=== PATIENT | male | born 1965 | race Caucasian/White ===

== ENCOUNTER 2023-07-18 11:06 | Inpatient (IN) | payer OTHER ==
[2023-07-18 12:46] LABS: BASO % 1.3 % (0-2.0); EOS % 2.2 % (0-4.5); HEMATOCRIT 17.6 % (35.4-49); LYMPH % 40.6 % (8-40); MCHC 28.3 g/dl (32.0-35.9); MEAN CELL VOLUME 56.1 fl (80-96); MEAN PLT VOLUME 10.3 fl (7.5-11.1); MONO % 12.5 % (3.8-10.2); NEUT % 43.4 % (42.8-82.8); PLATELET COUNT 183 10^3/uL (134-434); RBC 3.14 M/mm3 (4.00-5.60); WHITE BLOOD COUNT 5.2 K/mm3 (4.0-10.0)
[2023-07-18 12:49] LABS: MCH 15.9 pg (25.7-33.7)
[2023-07-18 13:01] LABS: POTASSIUM 4.3 mmol/L (3.5-5.1)
[2023-07-18 13:02] LABS: ALBUMIN 3.9 g/dl (3.4-5.0); BLOOD UREA NITROGEN 15.2 mg/dL (7-18); CALCIUM 8.2 mg/dL (8.5-10.1)
[2023-07-18 13:06] LABS: CREATININE 0.8 mg/dL (0.55-1.3)
[2023-07-18 13:07] LABS: BILIRUBIN,TOTAL 0.4 mg/dL (0.2-1); TOT PROT 6.9 g/dl (6.4-8.2)
[2023-07-18 13:24] LABS: ANISOCYTOSIS 3+; MACROCYTOSIS 0
[2023-07-18] MEDS ORDERED: ALBUTEROL SO4 HFA INHALER IH PRN (14:10)
[2023-07-18 14:59] LABS: RETICULOCYTES 2.09 % (0.5-1.5)
[2023-07-18] MEDS: BUDESONIDE/FORMETEROL FUMARATE 80/4.5 mcg INHALER IH SCH (22:13)
[2023-07-18 22:23] LABS: BASO % 1.4 % (0-2.0); EOS % 3.4 % (0-4.5); HEMOGLOBIN 7.4 GM/dL (11.7-16.9); MCHC 29.4 g/dl (32.0-35.9); MEAN CELL VOLUME 66.8 fl (80-96); MEAN PLT VOLUME 9.1 fl (7.5-11.1); MONO % 15.1 % (3.8-10.2); NEUT % 41.1 % (42.8-82.8); PLATELET COUNT 166 10^3/uL (134-434); RBC 3.74 M/mm3 (4.00-5.60); WHITE BLOOD COUNT 6.7 K/mm3 (4.0-10.0)
[2023-07-18 22:24] LABS: MCH 19.7 pg (25.7-33.7)
[2023-07-19 00:02] VITALS: BMI 32.0
[2023-07-19] MEDS ORDERED: LEVOTHYROXINE NA 112 MCG TABLET (FP) PO SCH (07:00)
[2023-07-19 08:07] LABS: BASO % 1.4 % (0-2.0); EOS % 3.8 % (0-4.5); HEMATOCRIT 28.9 % (35.4-49); HEMOGLOBIN 9.2 GM/dL (11.7-16.9); LYMPH % 31.2 % (8-40); MCH 21.3 pg (25.7-33.7); MCHC 31.9 g/dl (32.0-35.9); MEAN CELL VOLUME 66.9 fl (80-96); MONO % 12.9 % (3.8-10.2); NEUT % 50.7 % (42.8-82.8); RBC 4.32 M/mm3 (4.00-5.60); RDW 30.6 % (11.9-15.9); WHITE BLOOD COUNT 6.9 K/mm3 (4.0-10.0)
[2023-07-19 08:09] LABS: POTASSIUM 4.3 mmol/L (3.5-5.1)
[2023-07-19 08:14] LABS: ALBUMIN 3.6 g/dl (3.4-5.0); BLOOD UREA NITROGEN 13.7 mg/dL (7-18); CALCIUM 8.3 mg/dL (8.5-10.1); MAGNESIUM 2.2 mg/dL (1.8-2.4)
[2023-07-19 08:17] LABS: CREATININE 0.7 mg/dL (0.55-1.3); PHOSPHOROUS 3.5 mg/dL (2.5-4.9)
[2023-07-19 08:18] LABS: BILIRUBIN,TOTAL 1.2 mg/dL (0.2-1); MEAN PLT VOLUME 10.6 fl (7.5-11.1); PLATELET COUNT 172 10^3/uL (134-434); TOT PROT 6.8 g/dl (6.4-8.2)
[2023-07-19] MEDS: BUDESONIDE/FORMETEROL FUMARATE 80/4.5 mcg INHALER IH SCH (13:23)
[2023-07-19 16:07] VITALS: BP 123/70; PULSE 72; RESP 20; TEMP 98.3
== END 2023-07-19 17:45 | disposition home or self-care (01) | DRG 241 ==
LOC: JER 11:06 → JERBED 13:23 → OBSVTOIN 14:06 → J4W 22:58
PROVIDERS: ADMIT Internal Medicine; ATTEND Internal Medicine
PROC: 30233N1 Transfusion of Nonautologous Red Blood Cells into Peripheral Vein, Percutaneous Approach (ICD-10-PCS; principal; 2023-07-18)
DX: K29.40 Chronic atrophic gastritis without bleeding (principal); R07.89 Other chest pain; E03.9 Hypothyroidism, unspecified; K76.0 Fatty (change of) liver, not elsewhere classified; J45.909 Unspecified asthma, uncomplicated; D50.9 Iron deficiency anemia, unspecified
CPT/HCPCS: 36415; 36430; 71046-TC-FY; 71260-TC; 74177-TC; 80053; 82272; 82728; 83540; 83550; 83735; 84100; 84439; 84443; 84484; 85025; 85045; 86850; 86900; 86901; 86922; 93005; 93010; 99285-25; G0378; P9058; Q9967

== ENCOUNTER 2024-07-06 12:54 | Emergency (ER) | payer OTHER ==
[2024-07-06 12:59] VITALS: BP 130/82; PULSE 65; RESP 22; TEMP 97.4; BMI 34.2
[2024-07-06] MEDS ORDERED: IBUPROFEN 600 MG TABLET (FP) PO ONE (13:58)
[2024-07-06] MEDS: IBUPROFEN 600 MG TABLET (FP) PO ONE (14:12)
[2024-07-06 14:26] LABS: BASO % 0.7 % (0-2.0); EOS % 1.4 % (0-4.5); HEMATOCRIT 39.3 % (35.4-49); HEMOGLOBIN 12.6 GM/dL (11.7-16.9); INR 0.99 (0.83-1.09); LYMPH % 26.2 % (8-40); MCH 25.4 pg (25.7-33.7); MCHC 32.1 g/dl (32.0-35.9); MEAN PLT VOLUME 11.7 fl (7.5-11.1); MONO % 11.4 % (3.8-10.2); NEUT % 60.3 % (42.8-82.8); PLATELET COUNT 86 10^3/uL (134-434); PROTHROMBIN TIME (PATIENT) 11.2 SEC (9.7-13.0); RBC 4.97 M/mm3 (4.00-5.60); RDW 18.8 % (11.9-15.9); WHITE BLOOD COUNT 8.2 K/mm3 (4.0-10.0)
[2024-07-06 14:29] LABS: ACTIVATED PTT 31.6 SECONDS (25.2-36.5)
[2024-07-06 14:37] LABS: POTASSIUM 4.9 mmol/L (3.5-5.1)
[2024-07-06 14:39] LABS: ALBUMIN 3.7 g/dl (3.4-5.0); CALCIUM 8.9 mg/dL (8.5-10.1)
[2024-07-06 14:42] LABS: CREATININE 0.9 mg/dL (0.55-1.3)
[2024-07-06 14:44] LABS: BILIRUBIN,TOTAL 0.4 mg/dL (0.2-1); TOT PROT 6.9 g/dl (6.4-8.2)
[2024-07-06 14:47] LABS: N-TERMINAL BNP 188.8 pg/ml (5-125)
[2024-07-06 17:10] LABS: ERYTHROCYTE SEDIMENTATION RATE 6 mm/hr (0-20)
== END 2024-07-06 16:30 | disposition home or self-care (01) ==
LOC: JER 12:54
DX: M79.661 Pain in right lower leg (principal); M79.662 Pain in left lower leg; R29.898 Other symptoms and signs involving the musculoskeletal system; R60.0 Localized edema
CPT/HCPCS: 36415; 71046-TC-FY; 80053; 82550; 83880; 84439; 84443; 84484; 85025; 85610; 85651; 85730; 93005; 93010; 99285-25